=== PATIENT | female | born 1955 | race Caucasian/White ===

== ENCOUNTER → 2017-03-09 | Outpatient (CLI) | payer OTHER ==
[~2017-03-09] MED LIST: ADVIN50050 INH; APR50 PO; ASPEC81 PO; BNC40 PO; CLOP1TAB15 PO; CLS1 PO; CMBIN INH; ERGO1CAP35 PO; ESTCR; EZET10TA44 PO; FRS/40 PO; INSDGI SC; INSU1INJ SC; ISOS60TA25 PO; MAJIC MOUTH WASH; METO50TA16 PO; MULT-506 PO; NTRGSL/4 UT; OXYSRUNK PO; PANT40TA PO; PENT400T PO; Refresh Eye Drops OPB; SNG10 PO; [UNRECOGNIZED DRUG - CODE] PO
== END | disposition home or self-care (01) ==
LOC: C.LABSPEC 18:00
PROVIDERS: ATTEND Family Medicine
DX: R30.0 Dysuria (principal)

== ENCOUNTER → 2017-03-13 | Outpatient (CLI) | payer OTHER ==
[2017-03-13 13:55] LABS: BASO % 0.3 %; BASO ABS # 0.02 K/uL (0-0.2); COMPLETE YES; HEMATOCRIT 33.6 % (37-47); IG% 0.1 %; LYMPH % 24.5 %; LYMPH ABS # 1.69 K/uL (1.2-3.4); MEAN CELL VOLUME 89.6 fL (80-100); MEAN CORPUSCULAR HEMOGLOBIN 29.1 pg (25-34); MEAN CORPUSCULAR HGB CONC 32.4 g/dl (32-36); MEAN PLATELET VOLUME 10.6 fL (7.4-10.4); MONO % 11.3 %; NEUT % 60.8 %; PLATELET COUNT 261 K/uL (130-400); RED BLOOD COUNT 3.75 M/uL (4.2-5.4)
[2017-03-13 15:09] LABS: CALCIUM 8.7 mg/dl (8.5-10.1)
[2017-03-13 15:34] LABS: ESTIMATED AVERAGE GLUCOSE 163 mg/dl; HA1C FLAG Normal (Normal)
[2017-03-13 16:02] LABS: ALKALINE PHOSPHATASE 95 U/L (45-117); ALT/SGPT 21 U/L (12-78); AST/SGOT 18 U/L (15-37); BLOOD UREA NITROGEN 53 mg/dl (7-18); BUN/CREATININE RATIO 8.2 (10-20); CARBON DIOXIDE 22 mmol/L (21-32); CHLORIDE 108 mmol/L (98-107); CHOLESTEROL 130 mg/dl (0-200); CHOLESTEROL/HDL RATIO 3.2; GLUCOSE 103 mg/dl (70-99); HDL CHOLESTEROL 41 mg/dl; LDL CHOLESTEROL CALCULATED 58 mg/dl; POTASSIUM 5.2 mmol/L (3.5-5.1); SODIUM 140 mmol/L (136-145); TRIGLYCERIDES 153 mg/dl (0-150); VERY LOW DENSITY LIPOPROT CALC 31 mg/dl
== END | disposition home or self-care (01) ==
LOC: C.LABSPEC 13:39
PROVIDERS: ATTEND Family Medicine
DX: E11.9 Type 2 diabetes mellitus without complications (principal); I25.10 Atherosclerotic heart disease of native coronary artery without angina pectoris; F41.9 Anxiety disorder, unspecified

== ENCOUNTER → 2017-06-12 | Outpatient (CLI) | payer OTHER ==
[2017-06-12 13:48] LABS: BASO ABS # 0.06 K/uL (0-0.2); COMPLETE YES; EOS % 4.8 %; HEMATOCRIT 35.3 % (37-47); IG% 0.2 %; LYMPH % 30.5 %; LYMPH ABS # 1.91 K/uL (1.2-3.4); MEAN CELL VOLUME 87.4 fL (80-100); MEAN CORPUSCULAR HEMOGLOBIN 28.2 pg (25-34); MEAN CORPUSCULAR HGB CONC 32.3 g/dl (32-36); MEAN PLATELET VOLUME 10.5 fL (7.4-10.4); MONO % 10.2 %; NEUT % 53.3 %; PLATELET COUNT 277 K/uL (130-400); RED BLOOD COUNT 4.04 M/uL (4.2-5.4); WHITE BLOOD COUNT 6.26 K/uL (4.8-10.8)
[2017-06-12 14:10] LABS: ESTIMATED AVERAGE GLUCOSE 174 mg/dl; HA1C FLAG Normal (Normal)
[2017-06-12 14:31] LABS: ALB/GLOB RATIO 0.9 (0.9-2); ALKALINE PHOSPHATASE 88 U/L (45-117); ALT/SGPT 20 U/L (12-78); AST/SGOT 14 U/L (15-37); BLOOD UREA NITROGEN 67 mg/dl (7-18); BUN/CREATININE RATIO 9.6 (10-20); CALCIUM 8.5 mg/dl (8.5-10.1); CARBON DIOXIDE 26 mmol/L (21-32); CHLORIDE 103 mmol/L (98-107); CHOLESTEROL 149 mg/dl (0-200); CHOLESTEROL/HDL RATIO 3.1; GLUCOSE 97 mg/dl (70-99); HDL CHOLESTEROL 48 mg/dl; LDL CHOLESTEROL CALCULATED 71 mg/dl; POTASSIUM 5.1 mmol/L (3.5-5.1); SODIUM 139 mmol/L (136-145); TRIGLYCERIDES 148 mg/dl (0-150); VERY LOW DENSITY LIPOPROT CALC 30 mg/dl
== END | disposition home or self-care (01) ==
LOC: C.LABSPEC 13:17
PROVIDERS: ATTEND Family Medicine
DX: E11.9 Type 2 diabetes mellitus without complications (principal); I25.10 Atherosclerotic heart disease of native coronary artery without angina pectoris; F41.9 Anxiety disorder, unspecified

== ENCOUNTER → 2017-12-29 | Outpatient (CLI) | payer OTHER ==
[2017-12-29 12:55] LABS: BASO % 0.7 %; BASO ABS # 0.04 K/uL (0-0.2); EOS % 5.3 %; EOS ABS # 0.29 K/uL (0-0.5); HEMATOCRIT 38.5 % (37-47); HEMOGLOBIN 12.6 g/dL (12.0-16.0); IG# 0.01 K/uL (0.00-0.02); LYMPH % 22.4 %; LYMPH ABS # 1.22 K/uL (1.2-3.4); MEAN CELL VOLUME 90.6 fL (80-100); MEAN CORPUSCULAR HEMOGLOBIN 29.6 pg (25-34); MEAN CORPUSCULAR HGB CONC 32.7 g/dl (32-36); MEAN PLATELET VOLUME 10.8 fL (7.4-10.4); MONO % 11.9 %; MONO ABS # 0.65 K/uL (0.11-0.59); NEUT % 59.5 %; NEUT ABS # 3.23 K/uL (1.4-6.5); PLATELET COUNT 203 K/uL (130-400); RED CELL DISTRIBUTION WIDTH CV 13.6 % (11.5-14.5); RED CELL DISTRIBUTION WIDTH SD 44.9 fL (36.4-46.3); WHITE BLOOD COUNT 5.44 K/uL (4.8-10.8)
[2017-12-29 13:24] LABS: HEMOGLOBIN A1C 8.5 % (4.5-5.6)
[2017-12-29 14:22] LABS: BLOOD UREA NITROGEN 36 mg/dl (7-18); CREATININE 6.53 mg/dl (0.60-1.20); GLUCOSE 126 mg/dl (70-99)
[2017-12-29 14:23] LABS: ALBUMIN 3.5 gm/dl (3.4-5.0); ALKALINE PHOSPHATASE 118 U/L (45-117); ALT/SGPT 19 U/L (12-78); AST/SGOT 12 U/L (15-37); CALCIUM 8.8 mg/dl (8.5-10.1); CARBON DIOXIDE 26 mmol/L (21-32); CHOLESTEROL 156 mg/dl (0-200); LDL CHOLESTEROL CALCULATED 72 mg/dl; POTASSIUM 4.4 mmol/L (3.5-5.1); SODIUM 135 mmol/L (136-145); TOTAL PROTEIN 7.6 gm/dl (6.4-8.2)
== END | disposition home or self-care (01) ==
LOC: C.LABSPEC 12:42
PROVIDERS: ATTEND Family Medicine
DX: E11.9 Type 2 diabetes mellitus without complications (principal)

== ENCOUNTER → 2018-04-05 | Outpatient (CLI) | payer OTHER ==
[2018-04-05 18:17] LABS: BASO % 0.5 %; BASO ABS # 0.04 K/uL (0-0.2); EOS % 2.6 %; EOS ABS # 0.19 K/uL (0-0.5); HEMATOCRIT 40.9 % (37-47); HEMOGLOBIN 13.5 g/dL (12.0-16.0); IG# 0.01 K/uL (0.00-0.02); LYMPH % 20.1 %; LYMPH ABS # 1.49 K/uL (1.2-3.4); MEAN CELL VOLUME 89.3 fL (80-100); MEAN CORPUSCULAR HEMOGLOBIN 29.5 pg (25-34); MEAN PLATELET VOLUME 10.5 fL (7.4-10.4); MONO % 10.5 %; MONO ABS # 0.78 K/uL (0.11-0.59); NEUT % 66.2 %; PLATELET COUNT 218 K/uL (130-400); RED CELL DISTRIBUTION WIDTH CV 14.5 % (11.5-14.5); RED CELL DISTRIBUTION WIDTH SD 47.1 fL (36.4-46.3); WHITE BLOOD COUNT 7.41 K/uL (4.8-10.8)
[2018-04-05 20:07] LABS: ALBUMIN 3.4 gm/dl (3.4-5.0); ALKALINE PHOSPHATASE 117 U/L (45-117); ALT/SGPT 18 U/L (12-78); AST/SGOT 14 U/L (15-37); BLOOD UREA NITROGEN 33 mg/dl (7-18); CARBON DIOXIDE 28 mmol/L (21-32); CHOLESTEROL 165 mg/dl (0-200); GLUCOSE 137 mg/dl (70-99); LDL CHOLESTEROL CALCULATED 86 mg/dl; POTASSIUM 4.5 mmol/L (3.5-5.1); SODIUM 138 mmol/L (136-145); TOTAL PROTEIN 7.2 gm/dl (6.4-8.2)
[2018-04-06 07:04] LABS: HEMOGLOBIN A1C 8.2 % (4.5-5.6)
== END | disposition home or self-care (01) ==
LOC: C.LABSPEC 17:53
PROVIDERS: ATTEND Family Medicine
DX: E11.9 Type 2 diabetes mellitus without complications (principal); I25.10 Atherosclerotic heart disease of native coronary artery without angina pectoris; F41.9 Anxiety disorder, unspecified

== ENCOUNTER 2019-01-09 16:15 | Inpatient (IN) ==
[2019-01-09 19:53] LABS: Basophils # (auto) 0.01 K/uL (0-0.2); Basophils % (auto) 0.2 %; Eosinophils # (auto) 0.04 K/uL (0-0.5); Eosinophils % (auto) 0.9 %; Hemoglobin 7.7 g/dL (12.0-16.0); Immature Granulocytes # (auto) 0.01 K/uL (0.00-0.02); Immature Granulocytes % (auto) 0.2 %; Lymphocytes # (auto) 0.93 K/uL (1.2-3.4); Lymphocytes % (auto) 19.9 %; Mean Corpuscular Hgb Conc 30.8 g/dL (32-36); Mean Corpuscular Volume 89.3 fL (80-100); Mean Platelet Volume 8.9 fL (7.4-10.4); Monocytes # (auto) 0.49 K/uL (0.11-0.59); Monocytes % (auto) 10.5 %; Neutrophils # (auto) 3.19 K/uL (1.4-6.5); Neutrophils % (auto) 68.3 %; Platelet Count 241 K/uL (130-400); RDW Coefficient of Variation 15.9 % (11.5-14.5); RDW Standard Deviation 51.6 fL (36.4-46.3); White Blood Count 4.67 K/uL (4.8-10.8)
--- NOTE | 2019-01-09 19:56 | History & Physical Report ---
Date of Service January 09, 2019 Assessment & Plan (1) Chest pain: (2) Elevated troponin: (3) CAD (coronary artery disease): Hx CAD s/p stent LAD and RCA Transferred from [facility] for L sided CP, SOB, diaphoresis, N &V occurred today after albuterol. Had elevated troponin T of 478 (baseline 100-200's). Reported chronic ST depression with no significant EKG changes from prior. Received multiple doses SL nitro. Reported intermittent CP and SOB for several weeks. -Hx cardiac cath 11/2017: LAD stent patent with mild in-stent restenosis. RCA 50 % proximal lesion and patent prior proximal stent. Left common iliac 50% lesion , bilateral iliacs through common femoral arteries small caliber and diffusely calcified. - Hx echo 10/2018: EF: 54%, normal wall motion grade 2 diastolic dysfunction, mild mitral regurgitation -Currently pt without any CP or SOB. EKG ST changes lateral. no further T wave inversions compared to 10/12/2018 EKG -INR: 2.2 -pending repeat troponin and CXR -trend troponin -nitro prn chest pain with repeat EKG -continue aspirin, imdur -statin (will decrease statin to 40mg for now as interaction with high dose atorvastatin with amiodarone -appreciate cardiology recommendations for further dosing) -NPO after midnight -cardiology consult - discussed with Dr Ghotra today (4) Paroxysmal atrial fibrillation: Current sinus rhythm INR: 2.2 -continue amiodarone -hold coumadin tonight in case of procedure -monitor INR (5) ESRD on dialysis: On MWF schedule. Had dialysis today -nephro consult (6) Diabetes mellitus, type II: A1c: 6.2 on 12/31/18 -Novolog and lantus sliding scale per protocol (7) HTN (hypertension): -continue lasix, losartan, hydralazine (8) Anemia of chronic disease: Hgb: 7.7. Baseline: 7.4-9, with in 7's in 12/2018 -monitor H&H (9) Depression: -continue duloxetine DVT Prophylaxis -Anticoagulated on coumadin with INR: 2.2 Full Code as per discussion with pt Follows with Dr Renny Sauer for routine care Pt was seen with Dr Garay. See addendum History of Present Illness Chief Complaint: CP Primary Care Provider: Renny Sauer Pt is 63 y/o F with PMH PAF on coumadin, CAD s/p stent to LAD and RCA, h/o NSTEMI, PVD, HTN, stroke, encephalopathy, anemia of chronic disease, ESRD on HD on MWF, DM, GERD presented as transfer from [facility] for CP and elevated troponin. Patient reports intermittent chest pain for the past 6-8 weeks and has had several ER visits to [facility] for this. Patient states he was feeling fine today and went to dialysis and completed dialysis treatment. States she was started on albuterol for history of shortness of breath over the past several months and tried to using her albuterol neb for the first time today. After using nebulizer patient reports left-sided chest pain with associated shortness of breath, nausea, vomiting, diaphoresis. She states this pain today was more severe than her previous chest pains. Patient received multiple sublingual nitro and morphine. At [facility] Troponin T: 478. Patient's baseline 100-295. Reported EKG similar to previous EKGs. Patient denies any current chest pain since arriving at [facility]. Patient reports cannot tolerate Nitropaste secondary to blistering of skin. No current CP or SOB. Reports uses oxygen at dialysis however didn't qualify for home oxygen. Reports intermittent SOB x several months. Reports intermittent BLE edema, however denies any increase recently. Denies fever/chills, diaphoresis, [place], dizziness, syncope, vision changes, neck pain, palpitations, cough, sore throat, choking, otalgia, rhinorrhea, abdominal pain, paresthesias, weakness, extremity weakness, rashes, urinary symptoms. History cardiac cath 11/2017: LAD stent patent with mild in-stent restenosis. RCA 50% proximal lesion and patent prior proximal stent. Left common iliac 50% lesion, bilateral iliacs through common femoral arteries small caliber and diffusely calcified. History echo 10/2018: EF: 54%, normal wall motion grade 2 diastolic dysfunction , mild mitral regurgitation Patient follows with Dr. Schmid cardiology. Last visit 01/03/19. Was planning stress test.History of stress-induced cardiomyopathy. History of pulmonary edema 11/2018 and Multitak was discontinued and changed to amiodarone. Allergies Allergy/AdvReac Type Severity Reaction Status Date / Time dipyridamole Allergy Severe RESPIRATORY Verified 10/10/18 07:47 DISTRESS Penicillins Allergy Intermediate RASH Verified 10/10/18 07:47 adenosine Allergy Unknown RESPIRATORY Unverified 09/28/18 21:38 DISTRESS amlodipine Allergy Unknown RESPIRATORY Unverified 09/28/18 21:38 DISTRESS Beta-Blockers Allergy Unknown Unknown Verified 09/28/18 21:38 (Beta-Adrenergic Bloc clindamycin Allergy Unknown Unknown Verified 09/28/18 21:38 Iodinated Contrast- Oral and Allergy Unknown Unknown Verified 10/10/18 07:33 IV Dye olmesartan [From Benicar] Allergy Unknown Unknown Verified 09/28/18 21:38 adhesive tape AdvReac Unknown Unknown Verified 09/28/18 21:38 Home Medications Home Medications Medication Instructions Recorded Confirmed Type acetaminophen 650 mg PO Q4 PRN 09/28/18 01/09/19 History aspirin [Aspir-Low] 81 mg PO DAILY 09/28/18 01/09/19 History atorvastatin [Lipitor] 80 mg PO PM 09/28/18 01/09/19 History docusate sodium 100 mg PO BID PRN 09/28/18 01/09/19 History duloxetine [Cymbalta] 60 mg PO HS 09/28/18 01/09/19 History furosemide [Lasix] 80 mg PO BID17 09/28/18 01/09/19 History gabapentin [Neurontin] 100 mg PO TID 09/28/18 01/09/19 History insulin aspart U-100 [Novolog 0 units SUBCUT UD PRN 09/28/18 01/09/19 History U-100 Insulin aspart] insulin aspart U-100 [Novolog 5 unit SUBCUT TIDM 09/28/18 01/09/19 History U-100 Insulin aspart] ipratropium-albuterol [Combivent 1 puff INHALATION QID PRN 09/28/18 01/09/19 History Respimat] dexlansoprazole [Dexilant] 60 mg PO DAILY 09/29/18 01/09/19 History B complex-vitamin C-folic acid 1 tab PO DAILY 01/09/19 01/09/19 History [Renal Vitamin] amiodarone 200 mg PO BID 01/09/19 01/09/19 History bisacodyl 10 mg HI DAILY PRN 01/09/19 01/09/19 History cyclobenzaprine 10 mg PO BID PRN 01/09/19 01/09/19 History hydralazine 100 mg PO TID 01/09/19 01/09/19 History isosorbide mononitrate 60 mg PO DAILY 01/09/19 01/09/19 History losartan 100 mg PO DAILY 01/09/19 01/09/19 History nitroglycerin 1 tab SUBLINGUAL UD 01/09/19 01/09/19 History sevelamer carbonate [Renvela] 1,600 mg PO UD 01/09/19 01/09/19 History warfarin [Coumadin] 5 mg PO UD 01/09/19 01/09/19 History Past Med/Surg History Medical History Peripheral vascular disease (Chronic) Neuropathy (Chronic) GERD (gastroesophageal reflux disease) (Chronic) Depression (Chronic) HTN (hypertension) (Chronic) Diabetes mellitus, type II (Chronic) CAD (coronary artery disease) (Chronic) Paroxysmal atrial fibrillation (Chronic) Encephalopathy chronic (Chronic) Anemia of chronic disease (Chronic) ESRD on dialysis (Chronic) Surgical History History of arteriovenous shunt (Chronic) History of cardiac cath (Chronic) Social History marital status: Current Living Situation: Other Current Living Situation Comment: ex- Other Information That Helps Us Care for You: No Feels Safe at Home: Yes Safety Concerns: Feels Safe At This Time Smoking Status: Former smoker Second Hand Exposure: No Hx Alcohol Use: No Hx Substance Use: No Beliefs That Will Affect Care: None Preferred Language: Maltese Review of Systems All systems reviewed & are unremarkable except as noted in HPI & below Physical Exam 2 Vital Signs (Past 24 Hours): Last Vital Signs Temp 36.7 C 01/09/19 18:51 Pulse 100 H 01/09/19 18:51 Resp 20 01/09/19 18:51 BP 189/83 H 01/09/19 18:51 Pulse Ox 96 01/09/19 18:51 Physical Exam: General: no acute distress, chronic ill appearing, WDWN Head: normocephalic, atraumatic Eyes: PERRL, EOM's intact, conjunctiva non-injected, anicteric ENT: normal inspection external ears, nose, mucous membranes moist Neck: supple, trachea midline Lungs: clear, no respiratory distress CV: RRR, no murmur, trace pretibial edema Abd: normal BS, soft, non-tender Ext: no cyanosis, no calf tenderness Neuro: A&O x 3, no focal deficits noted, irritable Skin: warm, dry Results & Data Laboratory Results Short CBC 01/09/19 Range/Units 19:44 WBC 4.67 L (4.8-10.8) K/uL Hgb 7.7 L (12.0-16.0) g/dL Hct 25.0 L (37-47) % Plt Count 241 (130-400) K/uL BMP 01/09/19 19:44 Sodium 135 L Potassium 5.2 H Chloride 96 L Carbon Dioxide 34 H BUN 34 H Creatinine 4.46 H Glucose 208 H Calcium 8.0 L Liver Function 01/09/19 Range/Units 19:44 Total Bilirubin 0.4 (0.2-1) mg/dl AST 15 (15-37) U/L ALT 15 (12-78) U/L Alkaline Phosphatase 170 H (45-117) U/L Albumin 3.1 L (3.4-5.0) gm/dl Supervising Physician Co-Signing Physician Notes Pt was seen and examined. Agreed with Becka HERRERA exam, assessment and plan. Pt is 63 y/o F with PMH PAF on coumadin, CAD s/p stent to LAD and RCA, h/o NSTEMI, PVD, HTN, stroke, encephalopathy, anemia of chronic disease, ESRD on HD on MWF, DM, GERD presented as transfer from [facility] for chest pain and elevated troponin. Pt said that chest pain has been going on for weeks. Pt said that chest pain improves alittle with sublingual nitro. She had a cardiac cath done in 12/14 showed LAD stent patent with mild in-stent restenosis. RCA 50% proximal lesion and patent prior proximal stent. Left common iliac 50% lesion, bilateral iliacs through common femoral arteries small caliber and diffusely calcified. Will monitor trop. Will get an echo in am. Continue aspirin, statin and coumadin. Cardiology consult. Will make NPO after midnight for possible cardiac cath. MD Jarrod
[2019-01-09 20:07] LABS: INR 2.2 (0.9-1.1); Prothrombin Time 21.4 Seconds (9.0-12.0)
[2019-01-09 20:16] LABS: Hypochromasia Present
[2019-01-09] MEDS ORDERED: GLUCAGON FOR INJ 1 MG VIAL SQ PRN (20:18)
[2019-01-09] MEDS ORDERED: DEXTROSE 50% 50 ML SYRINGE IV PRN (20:18)
[2019-01-09] MEDS ORDERED: GLUCOSE 10 TABS/TUBE PO PRN (20:18)
[2019-01-09] MEDS ORDERED: GLUCOSE 40% GEL 15 GM TUBE PO PRN (20:18)
[2019-01-09] MEDS ORDERED: CARBOHYDRATES FOR HYPOGLYCEMIA PO PRN (20:18)
[2019-01-09] MEDS ORDERED: DOCUSATE SODIUM 100 MG CAP PO PRN (20:21)
[2019-01-09 20:24] LABS: Albumin Level 3.1 gm/dl (3.4-5.0); BUN Creatinine Ratio 7.6 (10-20); Creatinine Clr Calc Pharmacy 12.4 ml/min; Est GFR (African American) 11.4; Est GFR (Non-African American) 9.8; Magnesium 2.1 mg/dl (1.8-2.4); Potassium 5.2 mmol/L (3.5-5.1)
[2019-01-09 20:35] LABS: Albumin Globulin Ratio 0.8 (0.9-2); Bilirubin,Total 0.4 mg/dl (0.2-1); Globulin 3.8 gm/dl (2.5-4.0); Phosphorus 3.1 mg/dl (2.5-4.9); Total Protein 6.9 gm/dl (6.4-8.2)
[2019-01-09] MEDS ORDERED: ATORVASTATIN 40 MG TAB PO SCH (21:00)
--- NOTE | 2019-01-09 21:24 | XRay Report ---
XR chest 1V portable CLINICAL HISTORY: Chest pain. COMPARISON STUDY: Chest radiograph October 12, 2018. FINDINGS: Right internal jugular [id number] is in place. No pneumothorax or pleural effusion is id entified. There has been interval development of pleural vascular congestion with suspected mild pulm onary edema. Moderate cardiomegaly is noted. IMPRESSION: Interval development of mild pulmonary edema. Electronically signed by: Ángel Solomon M.D. 01/09/2019 9:23 PM
[2019-01-09] MEDS: ATORVASTATIN 40 MG TAB PO SCH (21:29)
[2019-01-09] MEDS: INSULIN ASPART 100 UNITS/ML 3 ML PEN SC SCH (21:29)
[2019-01-09] MEDS: GABAPENTIN 100 MG CAP PO SCH (21:29)
[2019-01-09] MEDS: HydrALAZINE TAB 50 MG TAB PO SCH (21:30)
[2019-01-09] MEDS: AMIODARONE 200 MG TAB PO SCH (21:30)
[2019-01-09] MEDS: SEVELAMER HCL 800 MG TABLET PO SCH (21:31)
[2019-01-09] MEDS: ZOLPIDEM TARTRATE 5 MG TAB PO PRN (21:33)
[2019-01-09] MEDS: DULOXETINE HCL 60 MG CAP PO SCH (21:34)
[2019-01-09] MEDS: INSULIN GLARGINE SOLOSTAR 100 UNITS/ML 3 ML PEN SC SCH (21:38)
[2019-01-10] MEDS ORDERED: HydrALAZINE HCL 20 MG/ML VIAL IV ONE (02:41)
[2019-01-10 06:31] LABS: Hematocrit (blood only) 24.6 % (37-47); Hemoglobin 7.4 g/dL (12.0-16.0); Mean Corpuscular Hgb Conc 30.1 g/dL (32-36); Mean Corpuscular Volume 90.4 fL (80-100); Mean Platelet Volume 9.3 fL (7.4-10.4); Platelet Count 243 K/uL (130-400); RDW Coefficient of Variation 15.9 % (11.5-14.5); RDW Standard Deviation 52.8 fL (36.4-46.3); Red Blood Count 2.72 M/uL (4.2-5.4); White Blood Count 6.41 K/uL (4.8-10.8)
[2019-01-10 06:39] LABS: INR 2.2 (0.9-1.1); Prothrombin Time 21.6 Seconds (9.0-12.0)
[2019-01-10 07:28] LABS: BUN Creatinine Ratio 7.8 (10-20); Calcium 8.3 mg/dl (8.5-10.1); Creatinine Clr Calc Pharmacy 10.8 ml/min; Est GFR (African American) 9.6; Est GFR (Non-African American) 8.3; Magnesium 2.2 mg/dl (1.8-2.4); Phosphorus 4.2 mg/dl (2.5-4.9); Potassium 4.8 mmol/L (3.5-5.1)
[2019-01-10] MEDS: SEVELAMER HCL 800 MG TABLET PO SCH ×4 (08:38→21:02)
[2019-01-10] MEDS: ACETAMINOPHEN 325 MG TAB PO PRN ×2 (08:39→23:33)
[2019-01-10] MEDS: FUROSEMIDE 80 MG TAB PO SCH ×2 (08:40→17:11)
[2019-01-10] MEDS: AMIODARONE 200 MG TAB PO SCH ×2 (08:40→21:04)
[2019-01-10] MEDS: PANTOprazole 40 MG TAB PO SCH (08:41)
[2019-01-10] MEDS: VITAMIN B COMPLEX TAB PO SCH (08:42)
[2019-01-10] MEDS: HydrALAZINE TAB 50 MG TAB PO SCH ×3 (08:42→21:02)
[2019-01-10] MEDS: GABAPENTIN 100 MG CAP PO SCH ×3 (08:42→21:03)
[2019-01-10] MEDS: INSULIN GLARGINE SOLOSTAR 100 UNITS/ML 3 ML PEN SC SCH ×3 (08:47→21:05)
[2019-01-10] MEDS ORDERED: ISOSORBIDE MONO EXTENDED REL 60 MG TABCR PO SCH (09:00)
[2019-01-10] MEDS ORDERED: LOSARTAN POTASSIUM 50 MG TAB PO SCH (09:00)
[2019-01-10] MEDS: INSULIN ASPART 100 UNITS/ML 3 ML PEN SC SCH ×4 (09:30→21:08)
--- NOTE | 2019-01-10 11:11 | Nephrology Consultation ---
Date of Consultation January 10, 2019 Assessment & Plan (1) ESRD on dialysis: Patient with ESRD on dialysis Monday. She had dialysis yesterday for 2-1/2 hours. She was admitted with chest pain and non-ST elevation NJ. She is planned for cardiac catheterization tomorrow. Chest x- ray showed mild pulmonary edema. We will dialyze her today for 2.5 hours to get UF of 2 L. We will plan to dialyze her tomorrow after catheter again or Monday. (2) Anemia of chronic disease: Patient with anemia of chronic renal disease. We will give Epogen 10,000 units with dialysis. (3) HTN (hypertension): Her blood pressure is above target. Continue current antihypertensive regimen. Expect improvement with dialysis (4) Chest pain: Patient with chest pain likely non-ST elevation NJ. She is planned for cardiac catheterization tomorrow morning. We will dialyze her today to optimize her for cardiac catheterization. History of Present Illness Reason for Consultation: ESRD complicated by chest pain Requesting Physician: Jose Eduardo Tadeo DO Attending Physician: Jose Eduardo Tadeo DO History of Present Illness Pt is 63 y/o F with PMH PAF on coumadin, CAD s/p stent to LAD and RCA, h/o NSTEMI, PVD, HTN, stroke, encephalopathy, anemia of chronic disease, ESRD on HD on MWF, DM, GERD admitted on 01/09/2019 as transfer from [facility] for CP and elevated troponin. Patient has long-standing history of chest pain and shortness of breath while on dialysis. She has been admitted multiple times for similar complaints. She had dialysis yesterday for 2-1/2 hours. She developed chest pain while on dialysis. History cardiac cath 11/2017: LAD stent patent with mild in-stent restenosis. RCA 50% proximal lesion and patent prior proximal stent. Left common iliac 50% lesion, bilateral iliacs through common femoral arteries small caliber and diffusely calcified. History echo 10/2018: EF: 54%, normal wall motion grade 2 diastolic dysfunction , mild mitral regurgitation Patient follows with Dr. Schmid cardiology. Today she feels better denying any chest pain or shortness of breath. She is being planned for cardiac Catheterization pending optimization of her INR. Chest x-ray showed mild pulmonary edema. Will been asked to provide dialysis support Allergies Allergy/AdvReac Type Severity Reaction Status Date / Time dipyridamole Allergy Severe RESPIRATORY Verified 10/10/18 07:47 DISTRESS Penicillins Allergy Intermediate RASH Verified 10/10/18 07:47 adenosine Allergy Unknown RESPIRATORY Unverified 09/28/18 21:38 DISTRESS amlodipine Allergy Unknown RESPIRATORY Unverified 09/28/18 21:38 DISTRESS Beta-Blockers Allergy Unknown Unknown Verified 09/28/18 21:38 (Beta-Adrenergic Bloc clindamycin Allergy Unknown Unknown Verified 09/28/18 21:38 Iodinated Contrast- Oral and Allergy Unknown Unknown Verified 10/10/18 07:33 IV Dye olmesartan [From Benicar] Allergy Unknown Unknown Verified 09/28/18 21:38 adhesive tape AdvReac Unknown Unknown Verified 09/28/18 21:38 Home Medications Home Medications Medication Instructions Recorded Confirmed Type acetaminophen 650 mg PO Q4 PRN 09/28/18 01/09/19 History aspirin [Aspir-Low] 81 mg PO DAILY 09/28/18 01/09/19 History atorvastatin [Lipitor] 80 mg PO PM 09/28/18 01/09/19 History docusate sodium 100 mg PO BID PRN 09/28/18 01/09/19 History duloxetine [Cymbalta] 60 mg PO HS 09/28/18 01/09/19 History furosemide [Lasix] 80 mg PO BID17 09/28/18 01/09/19 History gabapentin [Neurontin] 100 mg PO TID 09/28/18 01/09/19 History insulin aspart U-100 [Novolog 0 units SUBCUT UD PRN 09/28/18 01/09/19 History U-100 Insulin aspart] insulin aspart U-100 [Novolog 5 unit SUBCUT TIDM 09/28/18 01/09/19 History U-100 Insulin aspart] ipratropium-albuterol [Combivent 1 puff INHALATION QID PRN 09/28/18 01/09/19 History Respimat] dexlansoprazole [Dexilant] 60 mg PO DAILY 09/29/18 01/09/19 History B complex-vitamin C-folic acid 1 tab PO DAILY 01/09/19 01/09/19 History [Renal Vitamin] amiodarone 200 mg PO BID 01/09/19 01/09/19 History bisacodyl 10 mg DC DAILY PRN 01/09/19 01/09/19 History cyclobenzaprine 10 mg PO BID PRN 01/09/19 01/09/19 History hydralazine 100 mg PO TID 01/09/19 01/09/19 History isosorbide mononitrate 60 mg PO DAILY 01/09/19 01/09/19 History losartan 100 mg PO DAILY 01/09/19 01/09/19 History nitroglycerin 1 tab SUBLINGUAL UD 01/09/19 01/09/19 History sevelamer carbonate [Renvela] 1,600 mg PO UD 01/09/19 01/09/19 History warfarin [Coumadin] 5 mg PO UD 01/09/19 01/09/19 History Patient History Medical History Peripheral vascular disease (Chronic) Neuropathy (Chronic) GERD (gastroesophageal reflux disease) (Chronic) Depression (Chronic) HTN (hypertension) (Chronic) Diabetes mellitus, type II (Chronic) CAD (coronary artery disease) (Chronic) Paroxysmal atrial fibrillation (Chronic) Encephalopathy chronic (Chronic) Anemia of chronic disease (Chronic) ESRD on dialysis (Chronic) Surgical History History of arteriovenous shunt (Chronic) History of cardiac cath (Chronic) Social History marital status: Current Living Situation: Other Current Living Situation Comment: ex- Other Information That Helps Us Care for You: No Feels Safe at Home: Yes Safety Concerns: Feels Safe At This Time Smoking Status: Former smoker Second Hand Exposure: No Hx Alcohol Use: No Hx Substance Use: No Beliefs That Will Affect Care: None Preferred Language: Swiss Communication Ability: Effective Family Partner Required: No Review of Systems All other systems were reviewed and negative except as noted in HPI Physical Exam 2 Vital Signs (Past 24 Hours): Last Vital Signs Temp 37.3 C 01/10/19 07:45 Pulse 84 01/10/19 08:00 Resp 12 01/10/19 07:45 BP 162/70 H 01/10/19 07:45 Pulse Ox 99 01/10/19 07:45 Physical Exam: General exam: Appears comfortable, no acute distress HEENT: Pupils are equal and reactive to light Neck: No JVD, neck is supple trachea is midline Respiratory system: Clear breath sounds bilaterally. Gastrointestinal: Abdomen is soft, non distended, non tender, bowel sounds are present CVS: Regular rate and rhythm. No murmurs, rubs or gallops Musculoskeletal: No joint or muscle tenderness Extremities: Non tender, no edema, peripheral pulses are present Neuro: Oriented, no tremors, no focal neurological deficits Skin: No rashes Access: AVF Results & Data Laboratory Results Potassium 4.8, creatinine 5.1, sodium 138 Diagnostic Findings Chest x-ray shows mild pulmonary edema
[2019-01-10] MEDS ORDERED: SODIUM CHLORIDE 0.9% 1000ML 1,000 ML IV PRN (11:18)
[2019-01-10] MEDS: predniSONE 20 MG TAB PO SCH ×2 (11:32→21:03)
[2019-01-10] MEDS: ASPIRIN 81 MG ECTAB PO SCH (11:33)
[2019-01-10] MEDS ORDERED: OXYCODONE/ACETAMINOPHEN 10-325 TAB PO PRN (11:38)
--- NOTE | 2019-01-10 15:22 | Consultation Report ---
DATE OF CONSULTATION: 01/10/2019 INPATIENT CARDIOLOGY CONSULTATION CONSULTATION REQUESTED BY: Becka Acosta PA-C. REASON FOR CONSULTATION: Ongoing chest pain. HISTORY OF PRESENT ILLNESS: Ms. Alvarez is a 63-year-old woman who normally follows with Dr. Schmid of our [facility]. She presented to [facility] yesterday with a complaint of chest pain. The patient states that she was at home and for the first time ever used her albuterol nebulizer and since she started using it, she developed chest pain. She describes a left-sided substernal pressure sensation that was associated with shortness of breath, nausea, vomiting, and diaphoresis. She states that at that time she tried to sit down and relax and see if the discomfort would not go away, unfortunately she states it only worsened. At that time, she became concerned and went to [facility] Emergency Department. In the Emergency Department, the patient was still having chest pain, but refused nitroglycerin drip or nitro paste and took a total of 9 sublingual nitroglycerins until the discomfort resolved. She has not had any further since and she states that this pain was similar to the pain she had previously prior to her stents; however, this episode was much more severe. Of note, the patient has had multiple recent trips to the [facility] for chest pain which her primary section chief believed to be musculoskeletal in nature, but again she states that this pain prior to presentation was much different. She is also scheduled for an outpatient nuclear stress test, but that has not been performed yet. The [facility] physician called me to discuss the case of the and I accepted her for transfer here to [facility] for likely need for diagnostic cardiac catheterization. PAST SURGICAL HISTORY: 1. PCI to the LAD in 1999, RCA stent unknown, cardiac catheterization in 2018 showing a 50% proximal RCA stenosis prior to the stent with otherwise patent stents. 2. Right thorax port placement. 3. Total abdominal hysterectomy. 4. Bladder surgery. 5. Colonoscopy. 6. Laparoscopic oophorectomy. 7. Exploratory laparotomy. 8. AV fistula placement. 9. Tendon sheath surgery. 10. Foot surgery. 11. Appendectomy. 12. Cholecystectomy. 13. Tonsil and adenoidectomy. MEDICAL ILLNESSES: 1. Coronary artery disease status post multiple PCIs. 2. End-stage renal disease, on hemodialysis. 3. Paroxysmal atrial fibrillation, on chronic Coumadin therapy. 4. Peripheral vascular disease with 50% stenosis of the bilateral iliacs as well as common femoral arteries, are small and diffusely diseased, 2011 ABIs of 0.6 bilaterally. 5. Diabetes. 6. History of ischemic stroke. 7. GERD. 8. Anemia of chronic disease. 9. Hypertension. FAMILY HISTORY: Noncontributory. SOCIAL HISTORY: The patient is a former smoker, quit in 2007. Denies any alcohol or recreational drug use. She is and lives at home with her . REVIEW OF SYSTEMS: As per HPI, all other review of systems reviewed and negative at this time. ALLERGIES: 1. CONTRAST DYE, CAUSES AIRWAY EDEMA. 2. PERSANTINE, CAUSES AIRWAY EDEMA. 3. ADENOSINE, CAUSES AIRWAY EDEMA. 4. ADHESIVE TAPE. 5. BENICAR. 6. BETA BLOCKERS THAT HAVE CAUSED JUNCTIONAL BRADYCARDIA. 6. CLINDAMYCIN. 7. NITROGLYCERIN PASTE. 8. PENICILLIN. PHYSICAL EXAMINATION: VITALS: Temperature 37.3, pulse 84, respiratory rate 12, blood pressure 162/70. GENERAL: Awake, alert, oriented x3, no acute distress. HEENT: Normocephalic, atraumatic. Pupils equal, round, react to light and accommodation. Extraocular muscles intact. Anicteric sclerae. Moist mucous membranes. Poor dentition. NECK: No JVD, no bruit. CARDIOVASCULAR: Regular. Positive S4. Normal S1 and S2. No S3. No murmurs or rubs. PULMONARY: Clear to auscultation bilaterally. No rales, rhonchi, or wheezing. ABDOMEN: Bowel sounds x4, soft. No rebound, guarding, tenderness. No organomegaly. EXTREMITIES: No clubbing, cyanosis or edema. +2 pedal pulses bilaterally. SKIN: Warm and dry. TEST RESULTS: Limited echocardiogram for wall motion performed today showed normal LV chamber size with mild concentric LVH, normal LV systolic function, EF 55-60%, no segmental left ventricular wall motion abnormalities are noted. LABORATORY STUDIES OF SIGNIFICANCE: BUN 40, creatinine 5.12. INR of 2.2. IMPRESSION: 1. Unstable angina. 2. History of coronary artery disease with most recently 50% proximal RCA disease. 3. Peripheral vascular disease. 4. End-stage renal disease, on hemodialysis. RECOMMENDATIONS: It is my pleasure to see Ms. Alvarez in consultation today. Given the fact that the patient is pain free at this time and will require a steroid prep as well as an INR to be lower, we will hold off on catheterization today and plan to perform it on 01/11/2019. I have discussed this with her refinish technician who will coordinate dialysis treatments as needed. Otherwise, the patient will be prepped with prednisone 60 mg b.i.d. and possibly further treatment prior to catheterization in the a.m. She should be started on heparin once her INR goes below 2. Otherwise, should continue her aspirin, atorvastatin, Imdur and losartan. The above plan has been discussed with the patient and her and they both agree and will follow as directed.
--- NOTE | 2019-01-10 15:35 | Hospitalist Progress Note ---
Date of Service January 10, 2019 Assessment & Plan (1) Chest pain: (2) Elevated troponin: (3) CAD (coronary artery disease): Hx CAD s/p stent LAD and RCA Transferred from [facility] for L sided CP, SOB, diaphoresis, N &V occurred today after albuterol. Had elevated troponin T of 478 (baseline 100-200's). Reported chronic ST depression with no significant EKG changes from prior. Received multiple doses SL nitro. Reported intermittent CP and SOB for several weeks. -Hx cardiac cath 11/2017: LAD stent patent with mild in-stent restenosis. RCA 50 % proximal lesion and patent prior proximal stent. Left common iliac 50% lesion , bilateral iliacs through common femoral arteries small caliber and diffusely calcified. - Hx echo 10/2018: EF: 54%, normal wall motion grade 2 diastolic dysfunction, mild mitral regurgitation -Currently pt without any CP or SOB. EKG ST changes lateral. no further T wave inversions compared to 10/12/2018 EKG -INR: 2.2 -pending repeat troponin and CXR -trend troponin -nitro prn chest pain with repeat EKG -continue aspirin, imdur -statin (will decrease statin to 40mg for now as interaction with high dose atorvastatin with amiodarone -appreciate cardiology recommendations for further dosing) -NPO after midnight -cardiology on the case cath 01/11 (4) Paroxysmal atrial fibrillation: Current sinus rhythm INR: 2.2, Hold Warfarin -continue amiodarone -monitor INR (5) ESRD on dialysis: On MWF schedule. Had dialysis today -nephro consult (6) Diabetes mellitus, type II: A1c: 6.2 on 12/31/18 -Novolog and lantus sliding scale per protocol (7) HTN (hypertension): -continue lasix, losartan, hydralazine (8) Anemia of chronic disease: Hgb: 7.7. Baseline: 7.4-9, with in 7's in 12/2018 -monitor H&H (9) Depression: -continue duloxetine DVT Prophylaxis -Anticoagulated on coumadin with INR: 2.[address] Renny Sauer for routine care Subjective 63 y/o F with PMH PAF on coumadin, CAD s/p stent to LAD and RCA, h/o NSTEMI, PVD , HTN, stroke, encephalopathy, anemia of chronic disease, ESRD on HD on MWF, DM , GERD presented as transfer from [facility] for CP and elevated troponin. Patient reports intermittent chest pain for the past 6-8 weeks and has had several ER visits to [facility] for this. Patient states he was feeling fine today and went to dialysis and completed dialysis treatment. States she was started on albuterol for history of shortness of breath over the past several months and tried to using her albuterol neb for the first time today. After using nebulizer patient reports left-sided chest pain with associated shortness of breath, nausea, vomiting, diaphoresis. She states this pain today was more severe than her previous chest pains. Patient received multiple sublingual nitro and morphine. At [facility] Troponin T: 478. Patient's baseline 100-295. Reported EKG similar to previous EKGs. Patient denies any current chest pain since arriving at [facility]. Patient reports cannot tolerate Nitropaste secondary to blistering of skin. No current CP or SOB. Reports uses oxygen at dialysis however didn't qualify for home oxygen. Reports intermittent SOB x several months. Reports intermittent BLE edema, however denies any increase recently. Denies fever/ chills, diaphoresis, HURT[place]O, dizziness, syncope, vision changes, neck pain, palpitations, cough, sore throat, choking, otalgia, rhinorrhea, abdominal pain, paresthesias, weakness, extremity weakness, rashes, urinary symptoms. History cardiac cath 11/2017: LAD stent patent with mild in-stent restenosis. RCA 50% proximal lesion and patent prior proximal stent. Left common iliac 50% lesion, bilateral iliacs through common femoral arteries small caliber and diffusely calcified. History echo 10/2018: EF: 54%, normal wall motion grade 2 diastolic dysfunction , mild mitral regurgitation Patient follows with Dr. Schmid cardiology. Last visit 01/03/19. Was planning stress test.History of stress-induced cardiomyopathy. History of pulmonary edema 11/2018 and Multitak was discontinued and changed to amiodarone. Assessment and Plan Physical Exam 2 Vital Signs (Past 24 Hours): Last Vital Signs Temp 37.3 C 01/10/19 07:45 Pulse 84 01/10/19 08:00 Resp 12 01/10/19 07:45 BP 162/70 H 01/10/19 07:45 Pulse Ox 99 01/10/19 07:45 Results & Data Laboratory Results Current Diagnoses Anemia in other chronic diseases classified elsewhere (01/09/19) Type 2 diabetes mellitus without complications (01/09/19) Major depressive disorder, single episode, unspecified (01/09/19) Essential (primary) hypertension (01/09/19) Atherosclerotic heart disease of [place] coronary artery without angina pectoris (01/09/19) Paroxysmal atrial fibrillation (01/09/19) End stage renal disease (01/09/19) Chest pain, unspecified (01/09/19) Abnormal levels of other serum enzymes (01/09/19) Dependence on renal dialysis (01/09/19) Allergies dipyridamole Allergy (Severe, Verified 10/10/18 07:47) RESPIRATORY DISTRESS Penicillins Allergy (Intermediate, Verified 10/10/18 07:47) RASH adenosine Allergy (Unknown, Unverified 09/28/18 21:38) RESPIRATORY DISTRESS amlodipine Allergy (Unknown, Unverified 09/28/18 21:38) RESPIRATORY DISTRESS Beta-Blockers (Beta-Adrenergic Bloc Allergy (Unknown, Verified 09/28/18 21:38) Unknown clindamycin Allergy (Unknown, Verified 09/28/18 21:38) Unknown Iodinated Contrast- Oral and IV Dye Allergy (Unknown, Verified 10/10/18 07:33) Unknown olmesartan [From Benicar] Allergy (Unknown, Verified 09/28/18 21:38) Unknown adhesive tape Adverse Reaction (Unknown, Verified 09/28/18 21:38) Unknown Height/Weight/Isolation Height 5 ft 2 in Weight 77 kg Chemistry 01/09/19 01/10/19 19:44 06:18 Sodium 135 L 138 Potassium 5.2 H 4.8 Chloride 96 L 101 Carbon Dioxide 34 H 32 Anion Gap 5.0 5.0 BUN 34 H 40 H Creatinine 4.46 H 5.12 H* D Glucose 208 H 106 H
[2019-01-10] MEDS ORDERED: EPOETIN ALFA 10,000 UNITS/ML VIAL IV SCH (16:00)
[2019-01-10] MEDS: ZOLPIDEM TARTRATE 5 MG TAB PO PRN (21:01)
[2019-01-10] MEDS: ATORVASTATIN 40 MG TAB PO SCH (21:03)
[2019-01-10] MEDS: DULOXETINE HCL 60 MG CAP PO SCH (21:04)
[2019-01-10] MEDS: NITROGLYCERIN SL 0.4 MG/TAB TAB SL PRN ×2 (22:38→22:49)
[2019-01-10] MEDS ORDERED: HYDROmorphone INJ 0.5 MG/0.5 ML SYR IV PRN (22:41)
[2019-01-10] MEDS ORDERED: HydrALAZINE HCL 20 MG/ML VIAL ONE (22:51)
[2019-01-10 23:32] LABS: INR 1.8 (0.9-1.1); Partial Thromboplastin Ratio 1.4; Partial Thromboplastin Time 36.4 Seconds (21.0-31.0); Prothrombin Time 17.7 Seconds (9.0-12.0)
[2019-01-11] MEDS ORDERED: NITROGLYCERIN 2% OINTMENT 30GM TUBE EXT ONE (00:06)
[2019-01-11] MEDS ORDERED: Heparin IV Standard *NO* Bolus IV ONE (00:15)
[2019-01-11] MEDS ORDERED: PROCHLORPERAZINE 5 MG in SYRINGE 4 ML IV ONE (00:15)
[2019-01-11] MEDS ORDERED: LOSARTAN POTASSIUM 50 MG TAB PO SCH (00:15)
[2019-01-11] MEDS ORDERED: HYDROmorphone INJ 1 MG/ML SYRINGE IV STA ×2 (00:29→02:29)
[2019-01-11] MEDS ORDERED: LORazepam 0.5 MG/1 ML VIAL IV PRN (00:29)
[2019-01-11] MEDS ORDERED: ISOSORBIDE MONO EXTENDED REL 60 MG TABCR PO SCH (00:30)
[2019-01-11] MEDS ORDERED: HYDROmorphone INJ 1 MG/ML SYRINGE IV PRN (00:36)
[2019-01-11] MEDS ORDERED: HEPARIN STANDARD DEXTROSE 25,000 UNITS/500 ML IV SCH (00:45)
[2019-01-11 00:57] LABS: Basophils # (auto) 0.01 K/uL (0-0.2); Basophils % (auto) 0.2 %; Hematocrit (blood only) 24.1 % (37-47); Hemoglobin 7.6 g/dL (12.0-16.0); Immature Granulocytes # (auto) 0.02 K/uL (0.00-0.02); Immature Granulocytes % (auto) 0.3 %; Lymphocytes # (auto) 0.59 K/uL (1.2-3.4); Lymphocytes % (auto) 9.4 %; Mean Corpuscular Volume 88.3 fL (80-100); Mean Platelet Volume 9.7 fL (7.4-10.4); Monocytes # (auto) 0.35 K/uL (0.11-0.59); Monocytes % (auto) 5.6 %; Neutrophils # (auto) 5.33 K/uL (1.4-6.5); Neutrophils % (auto) 84.5 %; Platelet Count 257 K/uL (130-400); RDW Coefficient of Variation 15.5 % (11.5-14.5); RDW Standard Deviation 50.5 fL (36.4-46.3); Red Blood Count 2.73 M/uL (4.2-5.4)
[2019-01-11 01:05] LABS: Mean Corpuscular Hgb Conc 31.5 g/dL (32-36)
[2019-01-11 01:25] LABS: RBC Morphology Unremarkable
[2019-01-11] MEDS ORDERED: HydrALAZINE HCL 20 MG/ML VIAL IV STA (02:29)
[2019-01-11] MEDS ORDERED: cloNIDine HCl 0.1 MG TAB PO PRN (06:04)
[2019-01-11] MEDS ORDERED: Nursing to Pharmacy Communication ONE (06:47)
[2019-01-11] MEDS ORDERED: HEPARIN (PORCINE) 1000 UNIT/ML 10 ML (CATH LAB USE ONLY) ONE (06:53)
[2019-01-11] MEDS ORDERED: fentaNYL citrate 100 MCG/2 ML VIAL ONE (06:53)
[2019-01-11] MEDS ORDERED: NITROGLYCERIN/D5W 100MCG/ML 20ML SYR ONE (06:53)
[2019-01-11] MEDS ORDERED: MIDAZOLAM HCL 1 MG/ML 2ML VIAL ONE (06:53)
[2019-01-11] MEDS ORDERED: NiCARDipine HCL INJ 2.5 MG/ML 10 ML AMP ONE (06:53)
[2019-01-11] MEDS ORDERED: MoRPHine SULFATE 4 MG/ML 1 ML CARP\\VIAL IV PRN (07:02)
[2019-01-11] MEDS ORDERED: DiphenhydrAMINE HCL 50 MG/ML VIAL ONE (07:23)
[2019-01-11] MEDS ORDERED: raNITIdine HCl 25 MG/ML VIAL ONE (07:23)
[2019-01-11] MEDS ORDERED: LIDOCAINE HCL 1% 20 ML VIAL ONE (08:03)
--- NOTE | 2019-01-11 08:40 | Cardiac Catheterization ---
Date of Service January 11, 2019 Cardiac Cath Report Cardiac Cath Report Procedure: 1. Coronary angiography History: This is a 63-year-old female with end-stage renal disease on hemodialysis. The patient is a vasculopath with a history of prior coronary artery disease and coronary stents. She presented with chest pain and had a small elevation in her troponins. It was felt the best option would be to proceed directly with a cardiac catheterization. Procedure summary: The patient was brought to the cardiac catheterization lab. After informed consent was obtained, the patient was placed on the cardiac catheterization table. Attempts were made from the right radial artery however, I was unable to advance a wire beyond the patient's elbow. That site was abandoned. I next tried the right femoral artery, and although I was able to gain access I was not able to advance a wire a sufficient length to place the sheath. I next tried a left femoral artery and was successful. I was able to complete the coronary study utilizing 5 [place] diagnostic catheters. The patient tolerated the procedure well. She was returned to the holding area the [employer]ified [employer] where the sheaths were removed manually due to the patient's severe vascular disease. She will receive dialysis later today. She was also given a dye prep due to a history of a dye allergy. ACC data: AUC score 8 Start time 7:35 AM End time 8:19 AM No sedation was given Opening aortic pressure 152/63 Closing aortic pressure 119/55 LV pressure�valve not crossed IV fluid 50 cc normal saline Contrast 97 cc Optiray Fluoroscopy time 4.2 minutes Radiation 1425 mGy DAP [id number] Right dominant system Coronary angiography: Selective injections of the right coronary artery revealed to be dominant. There is a previous stent in the midportion of the right coronary artery which is patent. Just prior to the stent there is a 50% narrowing with the remainder the vessel having minor luminal irregularities. Selective injections of the left coronary artery revealed the left main trunk to be patent. The left circumflex artery consists principally of the AV groove portion and a single marginal branch. The left circumflex artery has minor coronary artery disease. The LAD has a long segment of coronary stent in its proximal and mid segment which is patent. The remainder of the LAD has diffuse nonobstructive disease. Summary: The patient's previous coronary stent sites are patent. The remainder of the coronary anatomy is patent with mild to moderate diffuse disease. Recommendations: The recommendations are for medical management of the patient's coronary artery disease.
[2019-01-11] MEDS: PANTOprazole 40 MG TAB PO SCH (09:24)
[2019-01-11] MEDS: predniSONE 20 MG TAB PO SCH (09:24)
[2019-01-11] MEDS: AMIODARONE 200 MG TAB PO SCH (09:24)
[2019-01-11] MEDS: ATORVASTATIN 40 MG TAB PO SCH (09:25)
[2019-01-11] MEDS: HydrALAZINE TAB 50 MG TAB PO SCH (09:25)
[2019-01-11] MEDS: FUROSEMIDE 80 MG TAB PO SCH (09:25)
[2019-01-11] MEDS: GABAPENTIN 100 MG CAP PO SCH (09:25)
[2019-01-11] MEDS: ASPIRIN 81 MG ECTAB PO SCH (09:26)
[2019-01-11] MEDS: SEVELAMER HCL 800 MG TABLET PO SCH (09:26)
[2019-01-11] MEDS: VITAMIN B COMPLEX TAB PO SCH (09:26)
[2019-01-11] MEDS: INSULIN GLARGINE SOLOSTAR 100 UNITS/ML 3 ML PEN SC SCH (09:32)
[2019-01-11] MEDS: INSULIN ASPART 100 UNITS/ML 3 ML PEN SC SCH ×2 (09:33→11:45)
[2019-01-11 09:42] LABS: Hematocrit (blood only) 25.4 % (37-47); Hemoglobin 7.9 g/dL (12.0-16.0); Mean Corpuscular Hgb Conc 31.1 g/dL (32-36); Mean Corpuscular Volume 87.3 fL (80-100); Mean Platelet Volume 9.6 fL (7.4-10.4); Platelet Count 317 K/uL (130-400); RDW Coefficient of Variation 15.5 % (11.5-14.5); RDW Standard Deviation 49.8 fL (36.4-46.3); Red Blood Count 2.91 M/uL (4.2-5.4); White Blood Count 5.44 K/uL (4.8-10.8)
[2019-01-11 10:00] LABS: Partial Thromboplastin Ratio 1.7
[2019-01-11 10:02] LABS: Partial Thromboplastin Time 45.1 Seconds (21.0-31.0)
[2019-01-11] MEDS ORDERED: ISOSORBIDE MONO EXTENDED REL 60 MG TABCR PO ONE (10:30)
--- NOTE | 2019-01-11 11:29 | Discharge Summary ---
Date of Service January 11, 2019 Admission HPI Per Admitting Provider Pt is 63 y/o F with PMH PAF on coumadin, CAD s/p stent to LAD and RCA, h/o NSTEMI, PVD, HTN, stroke, encephalopathy, anemia of chronic disease, ESRD on HD on MWF, DM, GERD presented as transfer from [facility] for CP and elevated troponin. Patient reports intermittent chest pain for the past 6-8 weeks and has had several ER visits to [facility] for this. Patient states he was feeling fine today and went to dialysis and completed dialysis treatment. States she was started on albuterol for history of shortness of breath over the past several months and tried to using her albuterol neb for the first time today. After using nebulizer patient reports left-sided chest pain with associated shortness of breath, nausea, vomiting, diaphoresis. She states this pain today was more severe than her previous chest pains. Patient received multiple sublingual nitro and morphine. At [facility] Troponin T: 478. Patient's baseline 100-295. Reported EKG similar to previous EKGs. Patient denies any current chest pain since arriving at [facility]. Patient reports cannot tolerate Nitropaste secondary to blistering of skin. No current CP or SOB. Reports uses oxygen at dialysis however didn't qualify for home oxygen. Reports intermittent SOB x several months. Reports intermittent BLE edema, however denies any increase recently. Denies fever/chills, diaphoresis, [place], dizziness, syncope, vision changes, neck pain, palpitations, cough, sore throat, choking, otalgia, rhinorrhea, abdominal pain, paresthesias, weakness, extremity weakness, rashes, urinary symptoms. History cardiac cath 11/2017: LAD stent patent with mild in-stent restenosis. RCA 50% proximal lesion and patent prior proximal stent. Left common iliac 50% lesion, bilateral iliacs through common femoral arteries small caliber and diffusely calcified. History echo 10/2018: EF: 54%, normal wall motion grade 2 diastolic dysfunction , mild mitral regurgitation Patient follows with Dr. Schmid cardiology. Last visit 01/03/19. Was planning stress test.History of stress-induced cardiomyopathy. History of pulmonary edema 11/2018 and Multitak was discontinued and changed to amiodarone. Admission Exam Per Admitting Provider General: no acute distress, chronic ill appearing, WDWN Head: normocephalic, atraumatic Eyes: PERRL, EOM's intact, conjunctiva non-injected, anicteric ENT: normal inspection external ears, nose, mucous membranes moist Neck: supple, trachea midline Lungs: clear, no respiratory distress CV: RRR, no murmur, trace pretibial edema Abd: normal BS, soft, non-tender Ext: no cyanosis, no calf tenderness Neuro: A&O x 3, no focal deficits noted, irritable Skin: warm, dry Principal Diagnosis (1) Chest pain: Negative Cath (2) Elevated troponin: (3) CAD (coronary artery disease): Hx CAD s/p stent LAD and RCA Transferred from [facility] for L sided CP, SOB, diaphoresis, N &V occurred today after albuterol. Had elevated troponin T of 478 (baseline 100-200's). Reported chronic ST depression with no significant EKG changes from prior. Received multiple doses SL nitro. Reported intermittent CP and SOB for several weeks. -Hx cardiac cath 11/2017: LAD stent patent with mild in-stent restenosis. RCA 50 % proximal lesion and patent prior proximal stent. Left common iliac 50% lesion , bilateral iliacs through common femoral arteries small caliber and diffusely calcified. - Hx echo 10/2018: EF: 54%, normal wall motion grade 2 diastolic dysfunction, mild mitral regurgitation -EKG ST changes lateral. no further T wave inversions compared to 10/12/2018 EKG -INR: 2.2 -repeat troponins coming down -continue aspirin, imdur -statin (will decrease statin to 40mg for now as interaction with high dose atorvastatin with amiodarone -appreciate cardiology recommendations for further dosing) (4) Paroxysmal atrial fibrillation: Current sinus rhythm INR: 2.2, Hold Warfarin -continue amiodarone -monitor INR (5) ESRD on dialysis: On MWF schedule. Had dialysis today -nephro consult (6) Diabetes mellitus, type II: A1c: 6.2 on 12/31/18 -Novolog and lantus sliding scale per protocol (7) HTN (hypertension): -continue lasix, losartan, hydralazine (8) Anemia of chronic disease: Hgb: 7.7. Baseline: 7.4-9, with in 7's in 12/2018 -monitor H&H (9) Depression: -continue duloxetine Discharge Exam ROS-No Headache, No Visual Changes, No Nausea, No Vomiting, No Fever, No Chills , No Neck Pain or Stiffness, + Chest Pain, No Palpitations, No SOB, No GUTIERREZ, No Cough, No Sputum, No Wheezing , No Abdominal Pain, No Diarrhea, No Hematemesis, No Hemoptysis, No Unexpected Weight Loss, No Flank pain, No Melena, No Hematochezia, No Frequency, No Urgency , No Burning, No Hematuria, No Rashes, No Diaphoresis. Appetite is Normal Physical Exam Gen-AAO x 3, NAD, Afebrile, Obese Head-NCAT, EOMI, PERRLA, Anicteric Sclera, No Posterior Pharyngeal Erythema Neck-Supple, No JVD, No Thyromegaly, No Masses, No LAD, No Bruits Lungs-Clear to Auscultation Bilaterally, No Rales, No Rhonchi, No Wheezing, No Crepitus Chest-No S4, +S1, +S2, No S3, No Murmurs, No Rubs, No Gallops, No Ectopy Abdomen-Soft, Bowel Sounds Present, Non Tender, Non Distended, No Hepatomegaly, No Splenomegaly, No Palpable Masses, No Rebound, No Rigidity, No Guarding Musculoskeletal-Full Range of Motion Bilaterally, No CVAT Extremities-No Cyanosis, No Clubbing, No Edema Nuero-Cranial Nerves II-XII grossly intact, Motor WNL, DTRs WNL, Strength WNL, Non Focal Psych-Normal Mood Discharge Data Allergies Allergy/AdvReac Type Severity Reaction Status Date / Time dipyridamole Allergy Severe RESPIRATORY Verified 10/10/18 07:47 DISTRESS Penicillins Allergy Intermediate RASH Verified 10/10/18 07:47 adenosine Allergy Unknown RESPIRATORY Unverified 09/28/18 21:38 DISTRESS amlodipine Allergy Unknown RESPIRATORY Unverified 09/28/18 21:38 DISTRESS Beta-Blockers Allergy Unknown Unknown Verified 09/28/18 21:38 (Beta-Adrenergic Bloc clindamycin Allergy Unknown Unknown Verified 09/28/18 21:38 Iodinated Contrast- Oral and Allergy Unknown Unknown Verified 10/10/18 07:33 IV Dye olmesartan [From Benicar] Allergy Unknown Unknown Verified 09/28/18 21:38 adhesive tape AdvReac Unknown Unknown Verified 09/28/18 21:38 Consultations 01/09/19 19:01 Consult Cardiology Routine Consult Nephrology Routine 01/09/19 19:04 Consult Case Management - Discharge Planning Routine 01/11/19 08:00 Consult Cardiac Catheterization Routine Procedures Performed Operation Date: 01/11/19 07:00 Actual Procedures p Cineradiography w/Routine Exam - Nishant Ruiz DO p Cath, Left with Cors and Vent - Nishant Ruiz DO Current Diagnoses Anemia in other chronic diseases classified elsewhere (01/09/19) Type 2 diabetes mellitus without complications (01/09/19) Major depressive disorder, single episode, unspecified (01/09/19) Essential (primary) hypertension (01/09/19) Atherosclerotic heart disease of [place] coronary artery without angina pectoris (01/09/19) Paroxysmal atrial fibrillation (01/09/19) End stage renal disease (01/09/19) Chest pain, unspecified (01/09/19) Abnormal levels of other serum enzymes (01/09/19) Dependence on renal dialysis (01/09/19) Allergies dipyridamole Allergy (Severe, Verified 10/10/18 07:47) RESPIRATORY DISTRESS Penicillins Allergy (Intermediate, Verified 10/10/18 07:47) RASH adenosine Allergy (Unknown, Unverified 09/28/18 21:38) RESPIRATORY DISTRESS amlodipine Allergy (Unknown, Unverified 09/28/18 21:38) RESPIRATORY DISTRESS Beta-Blockers (Beta-Adrenergic Bloc Allergy (Unknown, Verified 09/28/18 21:38) Unknown clindamycin Allergy (Unknown, Verified 09/28/18 21:38) Unknown Iodinated Contrast- Oral and IV Dye Allergy (Unknown, Verified 10/10/18 07:33) Unknown olmesartan [From Benicar] Allergy (Unknown, Verified 09/28/18 21:38) Unknown adhesive tape Adverse Reaction (Unknown, Verified 09/28/18 21:38) Unknown Height/Weight/Isolation Height 5 ft 2 in Weight 77 kg Chemistry 01/09/19 01/10/19 01/11/19 19:44 06:18 09:24 Sodium 135 L 138 Cancelled Potassium 5.2 H 4.8 Cancelled Chloride 96 L 101 Cancelled Carbon Dioxide 34 H 32 Cancelled Anion Gap 5.0 5.0 Cancelled BUN 34 H 40 H Cancelled Creatinine 4.46 H 5.12 H* D Cancelled Glucose 208 H 106 H Cancelled 01/11/19 10:34 Sodium Potassium 4.9 Chloride 93 L Carbon Dioxide 28 Anion Gap 7.0 BUN 44 H Creatinine 4.88 H* Glucose 368 H* Ordered Studies 01/11/19 07:06 CL Cath Imgs for PACS use only Routine Hospital Course (1) Chest pain: (2) Elevated troponin: (3) CAD (coronary artery disease): Neg cath, DC per IM and Cards (4) Paroxysmal atrial fibrillation: Current sinus rhythm INR: 2.2, Hold Warfarin (5) ESRD on dialysis: On MWF schedule. -nephro consult (6) Diabetes mellitus, type II: A1c: 6.2 on 12/31/18 -Novolog and lantus sliding scale per protocol (7) HTN (hypertension): -continue lasix, losartan, hydralazine (8) Anemia of chronic disease: Hgb: 7.7. Baseline: 7.4-9, with in 7's in 12/2018 -monitor H&H (9) Depression: -continue duloxetine DVT Prophylaxis -Anticoagulated on coumadin with INR: 2.[address] Renny Sauer and Binu Barrett for routine care DC home today Total Time Total Time Spent Total Time Spent (In Minutes): 45 mins Total Time Includes: Examination of the Patient, Discharge Planning, Medication Reconciliation and Communication With Other Providers Discharge Plan Discharge Items Patient Disposition: Home - Self-Care Reason For Visit: ND Discharge Diagnosis: (1) Chest pain: (2) Elevated troponin: (3) CAD (coronary artery disease): Hx CAD s/p stent LAD and RCA Transferred from [facility] for L sided CP, SOB, diaphoresis, N &V occurred today after albuterol. Had elevated troponin T of 478 (baseline 100-200's). Reported chronic ST depression with no significant EKG changes from prior. Received multiple doses SL nitro. Reported intermittent CP and SOB for several weeks. -Hx cardiac cath 11/2017: LAD stent patent with mild in-stent restenosis. RCA 50 % proximal lesion and patent prior proximal stent. Left common iliac 50% lesion , bilateral iliacs through common femoral arteries small caliber and diffusely calcified. - Hx echo 10/2018: EF: 54%, normal wall motion grade 2 diastolic dysfunction, mild mitral regurgitation -Currently pt without any CP or SOB. EKG ST changes lateral. no further T wave inversions compared to 10/12/2018 EKG -INR: 2.2 -pending repeat troponin and CXR -trend troponin -nitro prn chest pain with repeat EKG -continue aspirin, imdur -statin (will decrease statin to 40mg for now as interaction with high dose atorvastatin with amiodarone -appreciate cardiology recommendations for further dosing) -NPO after midnight -cardiology on the case cath 01/11 (4) Paroxysmal atrial fibrillation: Current sinus rhythm INR: 2.2, Hold Warfarin -continue amiodarone -monitor INR (5) ESRD on dialysis: On MWF schedule. Had dialysis today -nephro consult (6) Diabetes mellitus, type II: A1c: 6.2 on 12/31/18 -Novolog and lantus sliding scale per protocol (7) HTN (hypertension): -continue lasix, losartan, hydralazine (8) Anemia of chronic disease: Hgb: 7.7. Baseline: 7.4-9, with in 7's in 12/2018 -monitor H&H (9) Depression: -continue duloxetine Discharge Goals: Diagnostic testing Activity: Resume your previous activity Lifting: Gradually increase as tolerated Bathing: No limitations Sexual Activity: When tolerated Exercise/Sports: Rest today Driving/Machine Use: No limitations Weightbearing: Left weightbearing and Right weightbearing Non-emergency contact: Primary Care Provider and Meat [employer] P[employer] Inspector Call non-emergency contact if: you have any medication questions and your symptoms worsen Follow-up/Referrals: Renny Sauer DO [Primary Care Provider] - Diet: Carb Consistent or DM2 and Heart Healthy Addtl Provider Instructions: Work up for non cardiac CP Prescriptions: Continue amiodarone 200 mg Tablet 200 mg PO BID RF: 0 bisacodyl 10 mg Suppository 10 mg WI DAILY PRN (Reason: Constipation) RF: 0 B complex-vitamin C-folic acid [Renal Vitamin] 0.8 mg Tablet 1 tab PO DAILY RF: 0 cyclobenzaprine 10 mg Tablet 10 mg PO BID PRN (Reason: Muscle Spasm) RF: 0 isosorbide mononitrate 60 mg Tablet Extended Release 24 Hr 60 mg PO DAILY RF: 0 hydralazine 100 mg Tablet 100 mg PO TID RF: 0 warfarin [Coumadin] 5 mg Tablet 5 mg PO UD RF: 0 nitroglycerin 0.4 mg Tablet, Sublingual 1 tab Sublingual UD RF: 0 losartan 100 mg Tablet 100 mg PO DAILY RF: 0 sevelamer carbonate [Renvela] 800 mg Tablet 1,600 mg PO UD RF: 0 atorvastatin [Lipitor] 80 mg tablet 80 mg PO PM RF: 0 aspirin [Aspir-Low] 81 mg Tablet,Delayed Release (Dr/Ec) 81 mg PO DAILY RF: 0 furosemide [Lasix] 80 mg tablet 80 mg PO BID17 RF: 0 insulin aspart U-100 [Novolog U-100 Insulin aspart] 100 unit/mL solution 5 unit subcut TIDM RF: 0 insulin aspart U-100 [Novolog U-100 Insulin aspart] 100 unit/mL solution subcut UD PRN (Reason: sliding scale) RF: 0 gabapentin [Neurontin] 100 mg capsule 100 mg PO TID RF: 0 docusate sodium 100 mg Tablet 100 mg PO BID PRN (Reason: Constipation) RF: 0 duloxetine [Cymbalta] 60 mg capsule,delayed release(DR/EC) 60 mg PO HS RF: 0 ipratropium-albuterol [Combivent Respimat] 20-100 mcg/actuation Mist 1 puff INHALATION QID PRN (Reason: Shortness Of Breath) RF: 0 acetaminophen 325 mg Tablet 650 mg PO Q4 PRN (Reason: Pain) RF: 0 dexlansoprazole [Dexilant] 60 mg Capsule,Biphase Delayed Releas 60 mg PO DAILY RF: 0 Stand-Alone Forms: [facility] Discharge Orders: Discharge Order (Routine); Ordered 01/11/19 Ordered By: Jose Eduardo Tadeo Admission Data Admit Date/Time: 01/09/19 18:45 Attending Provider: Jose Eduardo Tadeo Admit Provider: Warner Garay Primary Care Provider: Renny Sauer Other Providers: Nishant Ruiz Japheth E. Service: Telemetry
[2019-01-11 11:31] LABS: BUN Creatinine Ratio 9.1 (10-20); Calcium 8.2 mg/dl (8.5-10.1); Creatinine Clr Calc Pharmacy 11.3 ml/min; Est GFR (African American) 10.2; Est GFR (Non-African American) 8.8; Potassium 4.9 mmol/L (3.5-5.1)
[2019-01-11 11:34] LABS: Hepatitis B Surface Antibody Non-Immune
[2019-01-11 11:45] LABS: Hepatitis B Surface Antigen Neg (Neg)
--- NOTE | 2019-01-11 18:45 | Nephrology Progress Note ---
Date of Service January 11, 2019 Assessment & Plan (1) ESRD on dialysis: Patient with ESRD on dialysis Monday. She had dialysis yesterday for 2-1/2 hours. She was admitted with chest pain and non-ST elevation DE. She had cardiac catheterization which showed no significant stenosis. Patient wants to go home. Next HD will be at the outpatient dialysis on monday. (2) Anemia of chronic disease: Patient with anemia of chronic renal disease. Continue Epogen 10,000 with dialysis. (3) HTN (hypertension): Her blood pressure is above target. Continue current antihypertensive regimen. (4) Chest pain: Patient with chest pain likely non-ST elevation DE. No significant coronary disease requiring intervention. Will conitnue medical management Subjective Patient seen after returning from [employer]. She is slightly drowsy. No SOB. She tolerated procedure well. She had HD yesterday Review of Systems Unobtainable due to cognitive status Physical Exam 2 Vital Signs (Past 24 Hours): Last Vital Signs Temp 36.8 C 01/11/19 12:16 Pulse 72 01/11/19 12:16 Resp 18 01/11/19 12:16 BP 178/71 H 01/11/19 12:16 Pulse Ox 96 01/11/19 12:16 Physical Exam: General exam: Appears comfortable, no acute distress HEENT: Pupils are equal and reactive to light Neck: No JVD, neck is supple trachea is midline Respiratory system: Clear breath sounds bilaterally. Gastrointestinal: Abdomen is soft, non distended, non tender, bowel sounds are present CVS: Regular rate and rhythm. No murmurs, rubs or gallops Musculoskeletal: No joint or muscle tenderness Extremities: Non tender, no edema, peripheral pulses are present Neuro: Oriented, no tremors, no focal neurological deficits Skin: No rashes Access: AVF Results & Data Laboratory Results Hb 7,6
[2019-01-12] MEDS ORDERED: ISOSORBIDE MONO EXTENDED REL 60 MG TABCR PO SCH (09:00)
== END 2019-01-11 12:38 | disposition home health service (06) | DRG 286 ==
LOC: 2S 18:45 → SUATTDRO 18:45